=== PATIENT | female | born 1940 | race Two or more races ===

== ENCOUNTER 2021-11-10 23:08 | Emergency (ER) | payer SELFPAY ==
[~2021-11-10] VITALS: Ht 157.5 cm; Wt 77.0 kg
[2021-11-10 23:43] LABS: BASO # 0.1 x10^3/uL (0.0-0.2); BASO % 1 % (0-3); EOS # 0.1 x10^3/uL (0.0-0.7); EOS % 2 % (0-3); HEMATOCRIT 36.6 % (36.0-47.0); HEMOGLOBIN 12.2 g/dL (12.0-15.5); LYMPH # 1.5 x10^3/uL (1.0-4.8); LYMPH % 27 % (24-48); MEAN CORPUSCULAR HEMOGLOBIN 28 pg (25-35); MEAN CORPUSCULAR HGB CONC 33 g/dL (31-37); MEAN CORPUSCULAR VOLUME 83 fL (79-100); MONO # 0.3 x10^3/uL (0.0-1.1); MONO % 6 % (0-9); NEUT # 3.7 x10^3/uL (1.8-7.7); NEUT % 65 % (31-73); PLATELET COUNT 138 x10^3/uL (140-400); RED BLOOD COUNT 4.42 x10^6/uL (3.50-5.40); RED CELL DISTRIBUTION WIDTH 14.9 % (11.5-14.5); WHITE BLOOD COUNT 5.7 x10^3/uL (4.0-11.0)
[2021-11-10] MEDS ORDERED: CRESTOR40 MG PO (23:43)
[2021-11-10] MEDS ORDERED: OMEP40CA7 PO (23:43)
[2021-11-10] MEDS ORDERED: SENN1TAB99 PO (23:44)
[2021-11-10] MEDS ORDERED: fentaNYL PF VIAL 100 MCG/2 ML VIAL IV PRN (23:45)
[2021-11-10] MEDS ORDERED: IV NORMAL SALINE 1000ML BAG 1,000 ML IV ONE (23:45)
[2021-11-10] MEDS ORDERED: ONDANSETRON PF 4 MG/2 ML VIAL. IVP ONE (23:45)
[2021-11-10] MEDS ORDERED: FAMOTIDINE 20 MG/2 ML VIAL IVP ONE (23:45)
[2021-11-10] MEDS ORDERED: ASPI325T8 PO (23:45)
[2021-11-10 23:46] LABS: BILIRUBIN,URINE NEGATIVE (NEG); CLARITY,URINE CLEAR; COLOR,URINE YELLOW; NITRITE,URINE NEGATIVE (NEG); PH,URINE 6.5 (<5.0-8.0); PROTEIN,URINE NEGATIVE (NEG-TRACE); UROBILINOGEN,URINE 0.2 mg/dL (0.2 mg/dL)
[2021-11-10] MEDS ORDERED: SITA1TAB7 PO (23:46)
[2021-11-10 23:52] LABS: RBC,URINE 0 /HPF (0-2)
[2021-11-10 23:53] LABS: BACTERIA,URINE MODERATE /HPF (0-FEW)
[2021-11-10 23:56] LABS: CALCIUM 8.8 mg/dL (8.5-10.1); CREATININE 0.8 mg/dL (0.6-1.0); GFR 68.7; POTASSIUM 3.8 mmol/L (3.5-5.1)
[2021-11-11 00:02] LABS: ALBUMIN 3.2 g/dL (3.4-5.0); ALBUMIN/GLOBULIN RATIO 0.8 (1.0-1.7); TOTAL BILIRUBIN 0.5 mg/dL (0.2-1.0); TOTAL PROTEIN 7.3 g/dL (6.4-8.2)
--- NOTE | 2021-11-11 00:06 | PHYS DOC ---
Past Medical History Past Medical History: Diabetes-Type II, High Cholesterol (WILMERIsabellaSTORMY Mohan CHIEF RISK OFFICER) Smoking Status: Never Smoker Alcohol Use: None (STORMY GABRIEL Mohan CHIEF RISK OFFICER) General Adult EDM: Chief Complaint: ABDOMINAL PAIN HPI: HPI: Patient is a 81 year old female with history of diabetes type 2, high cholesterol, who presents the ED today complaining of mild intermittent epigastric abdominal pain with nausea and vomiting that began this morning. Patient denies any chest pain, shortness of breath, denies any diarrhea. Denies any hematemesis. She states she has history of gastritis and this pain feels similar. She states she has [place] the [place] since [place]. Patient is Swedish-speaking and the granddaughter is interpreting (STORMY GABRIEL CHIEF RISK OFFICER) Review of Systems: Review of Systems: Constitutional: Denies fever or chills. [] Eyes: Denies change in visual acuity. [] HENT: Denies nasal congestion or sore throat. [] Respiratory: Denies cough or shortness of breath. [] Cardiovascular: Denies chest pain or edema. [] GI: Reports epigastric abdominal pain with nausea and vomiting, bloody stools or diarrhea. [] : Denies dysuria. [] Musculoskeletal: Denies back pain or joint pain. [] Integument: Denies rash. [] Neurologic: Denies headache, focal weakness or sensory changes. [] Endocrine: Denies polyuria or polydipsia. [] Lymphatic: Denies swollen glands. [] Psychiatric: Denies depression or anxiety. [] (NERYSTORMY Preston CHIEF RISK OFFICER) Heart Score: C/O Chest Pain: N/A Risk Factors: Risk Factors: DM, Current or recent (<one month) smoker, HTN, HLP, family history of CAD, obesity. Risk Scores: Score 0 - 3: 2.5% MACE over next 6 weeks - Discharge Home Score 4 - 6: 20.3% MACE over next 6 weeks - Admit for Clinical Observation Score 7 - 10: 72.7% MACE over next 6 weeks - Early Invasive Strategies (STORMY GABRIEL CHIEF RISK OFFICER) Current Medications: Current Medications Medications (Trade) Dose Ordered Sig/Siddhartha Start Time Stop Time Status Last Admin Dose Admin Famotidine (Pepcid Vial) 20 mg 1X ONCE 11/10/21 23:45 11/10/21 23:46 DC Fentanyl Citrate (Fentanyl 2ml Vial) 50 mcg PRN Q15MIN PRN 11/10/21 23:45 11/11/21 23:44 Ondansetron HCl (Zofran) 4 mg 1X ONCE 11/10/21 23:45 11/10/21 23:46 DC Sodium Chloride 1,000 ml @ 1,000 mls/hr 1X ONCE 11/10/21 23:45 11/11/21 00:44 (STORMY GABRIEL Mohan CHIEF RISK OFFICER) Allergies: Allergies: Allergies Coded Allergies Type Severity Reaction Last Updated Verified No Known Drug Allergies 11/10/21 No (STORMY GABRIEL Mohan CHIEF RISK OFFICER) Physical Exam: PE: Constitutional: Well developed, well nourished, no acute distress, non-toxic appearance. [] HENT: Normocephalic, atraumatic, bilateral external ears normal, oropharynx moist, no oral exudates, nose normal. [] Eyes: PERRLA, EOMI, conjunctiva normal, no discharge. [] Neck: Normal range of motion, no tenderness, supple, no stridor. [] Cardiovascular:Heart rate regular rhythm, no murmur [] Lungs & Thorax: Bilateral breath sounds clear to auscultation [] Abdomen: Bowel sounds normal, soft, mild tenderness to the epigastric region, no right upper quadrant or right lower quadrant tenderness, no masses, no pulsatile masses. [] Skin: Warm, dry, no erythema, no rash. [] Back: No tenderness, no CVA tenderness. [] Extremities: No tenderness, no cyanosis, no clubbing, ROM intact, no edema. [] Neurologic: Alert and oriented X 3, normal motor function, normal sensory function, no focal deficits noted. [] Psychologic: Affect normal, judgement normal, mood normal. [] (TSORMY GABRIEL M CHIEF RISK OFFICER) Current Patient Data: Labs: Laboratory Tests Test 11/10/21 23:20 11/10/21 23:30 Urine Collection Type Void Urine Color Yellow Urine Clarity Clear Urine pH 6.5 (<5.0-8.0) Urine Specific [place] 1.020 (1.000-1.030) Urine Protein Negative mg/dL (NEG-TRACE) Urine Glucose (UA) Negative mg/dL (NEG) Urine Ketones (Stick) Negative mg/dL (NEG) Urine Blood Negative (NEG) Urine Nitrite Negative (NEG) Urine Bilirubin Negative (NEG) Urine Urobilinogen Dipstick 0.2 mg/dL (0.2 mg/dL) Urine Leukocyte Esterase Moderate (NEG) Urine RBC 0 /HPF (0-2) Urine WBC 11-20 /HPF (0-4) Urine Squamous Epithelial Cells Mod /LPF Urine Bacteria Moderate /HPF (0-FEW) Urine Mucus Slight /LPF White Blood Count 5.7 x10^3/uL (4.0-11.0) Red Blood Count 4.42 x10^6/uL (3.50-5.40) Hemoglobin 12.2 g/dL (12.0-15.5) Hematocrit 36.6 % (36.0-47.0) Mean Corpuscular Volume 83 fL (79-100) Mean Corpuscular Hemoglobin 28 pg (25-35) Mean Corpuscular Hemoglobin Concent 33 g/dL (31-37) Red Cell Distribution Width 14.9 % (11.5-14.5) H Platelet Count 138 x10^3/uL (140-400) L Neutrophils (%) (Auto) 65 % (31-73) Lymphocytes (%) (Auto) 27 % (24-48) Monocytes (%) (Auto) 6 % (0-9) Eosinophils (%) (Auto) 2 % (0-3) Basophils (%) (Auto) 1 % (0-3) Neutrophils # (Auto) 3.7 x10^3/uL (1.8-7.7) Lymphocytes # (Auto) 1.5 x10^3/uL (1.0-4.8) Monocytes # (Auto) 0.3 x10^3/uL (0.0-1.1) Eosinophils # (Auto) 0.1 x10^3/uL (0.0-0.7) Basophils # (Auto) 0.1 x10^3/uL (0.0-0.2) Sodium Level 140 mmol/L (136-145) Potassium Level 3.8 mmol/L (3.5-5.1) Chloride Level 104 mmol/L (98-107) Carbon Dioxide Level 27 mmol/L (21-32) Anion Gap 9 (6-14) Blood Urea Nitrogen 18 mg/dL (7-20) Creatinine 0.8 mg/dL (0.6-1.0) Estimated GFR (Cockcroft-Gault) 68.7 BUN/Creatinine Ratio 23 (6-20) H Glucose Level 157 mg/dL (70-99) H Calcium Level 8.8 mg/dL (8.5-10.1) Total Bilirubin Pending Aspartate Amino Transferase (AST) Pending Alanine Aminotransferase (ALT) Pending Alkaline Phosphatase Pending Total Protein Pending Albumin Pending Albumin/Globulin Ratio Pending Laboratory Tests 11/10/21 23:30 Laboratory Tests 11/10/21 23:30 (STORMY GABRIEL Mohan CHIEF RISK OFFICER) EKG: EKG: [] (STORMY GABRIEL Mohan CHIEF RISK OFFICER) EKG: Patient 70 bpm, no axis deviation, normal intervals, APCs present, no T wave inversion, no ST ovation ST depression, (KATELYNN LUCIANO DO) Radiology/Procedures: Radiology/Procedures: [] (STORMY GABRIEL Mohan CHIEF RISK OFFICER) Radiology/Procedures: IMAGING REPORT Signed PATIENT: JUAREZ GONZALES ACCOUNT: [id number] : 1940 LOCATION: ER AGE: 81 SEX: F EXAM STATUS: REG ER ORD. PHYSICIAN: KATELYNN LUCIANO DO REASON: abd pain OMNI 300 75 ML IV PROCEDURE: CT CHEST ABD PELVIS W/CONTRAST PQRS Compliance Statement: One or more of the following individualized dose reduction techniques were utilized for this examination: 1. Automated exposure control 2. Adjustment of the mA and/or kV according to patient size 3. Use of iterative reconstruction technique CT CHEST+ABD+PELVIS W 11/10/2021 12:40 AM INDICATION: Abdominal pain COMPARISON: None available TECHNIQUE: Multiple axial CT images of the chest, abdomen and pelvis were obtained after the intravenous administration of 75 mL Omnipaque 300. Coronal and sagittal reformats are provided. FINDINGS: Thyroid gland is normal in appearance. There are no pathologically enlarged axillary, mediastinal or hilar lymph nodes. Heart size is within normal limits. Thoracic aorta is normal in course and caliber. There is no significant pericardial effusion. Thoracic esophagus is normal in appearance. Anterior chest wall appears intact. No suspicious solid noncalcified pulmonary nodule. There are no pleural effusions, pulmonary vascular congestion or pneumothorax. Lungs are clear without focal airspace consolidation. Central airways are clear. Moderate-sized hiatal hernia. Liver, spleen, adrenal glands and pancreas are no rmal in appearance. Cholelithiasis. Abdominal aorta is normal in course and caliber. There is no free fluid or free intraperitoneal air. No pathologically enlarged lymph nodes in abdomen or pelvis. The kidneys enhance symmetrically. There is no suspicious renal mass. There is no hydronephrosis. There are no suspected calculi within the kidneys, ureters or urinary bladder. Simple renal cyst identified in the inferior pole of left kidney measuring 8 mm. Urinary bladder is within normal limits given degree of distention. Mild diverticulosis. Minimal adjacent inflammation identified at the junction of the left colon and sigmoid colon as may be seen with mild diverticulitis. No peridiverticular a bscess. Appendix is normal in appearance. No suspicious osseous abnormality is identified. There is inferior endplate compression deformity of L1 secondary to Schmorl's node with 50 percent height loss, likely chronic. Retropulsion of the inferior endplate resulting in mild spinal canal stenosis. IMPRESSION: 1. Mild diverticulitis of the junction of the left colon and sigmoid colon. No peridiverticular abscess or free intraperitoneal air. 2. No acute abnormality involving the chest. 3. Moderate sized hiatal hernia. 4. Inferior plate compression deformity at L1 appears chronic with 50 percent height loss and mild retropulsion resulting in mild spinal canal stenosis. 5. Cholelithiasis Electronically signed by: Hugo Licona MD (11/11/2021 1:43 AM) [facility] DICTATED and SIGNED BY: HUGO LICONA MD DATE: 11/11/21 [id number] (KATELYNN LUCIANO DO) Course & Med Decision Making: Course & Med Decision Making Pertinent Labs and Imaging studies reviewed. (See chart for details) This 81-year-old female patient with history of gastritis presented today complaining of nausea, vomiting and epigastric abdominal pain since this morning. [address] Luciano (STORMY GABRIEL APRN) Course & Med Decision Making I received signout at shift change. Patient presents to the ED with complaints of epigastric abdominal pain with nausea and vomiting. Patient with no active n ausea or vomiting emergency department. CT imaging concerning for mild diverticulitis and urinalysis consistent with urinary tract infection. Will prescribe Cipro, Flagyl and Zofran ODT. Reevaluation, patient calm, resting with significant improvement in pain. Tolerates oral intake. Abdomen is soft with no rigidity or guarding. Daughter is at bedside to assist with translating - patient is Swedish-speaking, dewer services were offered. Will discharge home with strict ED return precautions were given for intractable nausea or vomiting, severe abdominal pain, fever or confusion. Encouraged urgent outpatient follow-up with PMD for repeat evaluation, consider GI evaluation for diverticulitis. Life-threatening processes were considered but are low suspicion at this time, given history, physical exam and ED workup. Pt was educated on all prescription medications and adverse effects. All patient's questions were answered and pt was stable at time of discharge. Life/limb-threatening differential includes but is not limited to, aortic dissection, aortic aneurysm, acute coronary syndrome, surgical abdomen (appendicitis, cholecystitis, ischemic bowel, strangulated hernia, etc), bowel o bstruction or volvulus, bladder outlet obstruction, gastrointestinal bleeding, inflammatory bowel disease, peptic ulcer disease, ACS/CAD, sepsis, diverticular disease, ureterolithiasis, nephrolithiasis, ovarian or testicular torsion, ectopic , vaginal hemorrhage, or genitourinary infection. I have spoken with the patient and/or caregivers. I explained the patient's condition, diagnoses and treatment plan based on the information available to me at this time. I have answered the patient and/or caregiver's questions and addressed any concerns. The patient and/or caregivers have a good understanding of patient's diagnosis, condition and treatment plan as can be expected at this point. Vital signs have been stable. Patient's condition is stable and appropriate for discharge from the emergency department. Patient will pursue further outpatient evaluation with primary care physician or other designated or consulting physician as outlined in the discharge instructions. The patient and/or caregivers are agreeable to this plan of care and follow-up instructions have been explained in detail. The patient and/or caregivers have received these instructions in written form and have expressed an understanding of the discharge instructions. The patient and/or caregivers are aware that any significant change of condition or worsening of symptoms should prompt immediate return to this or the closest emergency department or call to 911. (KATELYNN WILSON DO) Nitish Disclaimer: Nitish Disclaimer: This electronic medical record was generated, in whole or in part, using a voice recognition dictation system. (STORMY GABRIEL CHIEF RISK OFFICER) Departure Departure Impression: Primary Impression: Diverticulitis Additional Impression: UTI (urinary tract infection) Disposition: 01 HOME / SELF CARE / HOMELESS Condition: STABLE Referrals: POP BRINK III DO Seguimiento con montague mdico de atencin primaria para atencin de rutina O SEGUIMIENTO CON MEDICINA FAMILIAR: [address] [place] [address] Telf[place]: Patient Instructions: Abdominal Pain (Nonspecific), Diverticulitis, Urinary Tract Infection Additional Instructions: SEGUIMIENTO CON GASTROENTEROLOGA: PARA EL MANEJO DEFINITIVO del dolor abdominal, considere evaluacin para endoscopia y colonoscopia Consultores gastrointestinales de [facility] Austin Francoise [address] [place] [address] [place]: INSTRUCCIONES GENERALES DE SOLEDAD DEL DEPARTAMENTO DE EMERGENCIA Levi por venir al Departamento de Emergencias (ED) de [facility] y confiando en nosotros con montague cuidado. Confiamos en que tuviste sharla experiencia positiva en nuestra Emergencia Departamento. Si desea hablar con la gerencia del departamento, puede llamar al Director al [phone]. YVONNE INSTRUCCIONES DE SEGUIMIENTO SON LAS SIGUIENTES: 1. Tiene un mdico privado? Si no tiene un mdico privado, por favor pida vitor lista de recursos de mdicos o clnicas que pueden ayudarlo con la atencin de seguimiento. 2. El Mdico de Urgencias araujo interpretado yvonne radiografas. El especialista en arturo X tambin revisarlos. Si hay un cambio en los hallazgos, se le notificar en 48 horas cuando al todo posible. 3. Se araujo realizado sharla prueba de laboratorio o cultivo, se revisarn yvonne resultados y se le notificado si necesita un cambio en el tratamiento. INSTRUCCIONES E INFORMACIN ADICIONALES: 1. Montague atencin hoy araujo sido supervisada por un mdico especialmente capacitado en emergencias cuidado. Muchos problemas requieren ms de sharla evaluacin para un diagnstico completo y tratamiento. Le recomendamos que programe montague edi de seguimiento segn lo recomendado para garantizar el tratamiento completo de montague enfermedad o lesin. Si no puede obtener un seguimiento atencin y contina teniendo un problema, o si montague condicin empeora, le chantal mendamos que volver al servicio de urgencias. 2. No podemos determinar montague condicin de forma bustillo por telfono ni podemos oscar buenos consejos mdicos por telfono. Por estas razones de seguridad, si llama para recibir atencin mdica consejo, le pediremos que venga al servicio de urgencias para sharla evaluacin adicional. 3. Si tiene alguna pregunta con respecto a estas instrucciones de soledad, llame al ED al [phone]. INFORMACIN DE SEGURIDAD: En inters de la seguridad, el bienestar y la prevencin de lesiones; te animamos a que lleves tu cinturn de seguridad, si fuma; fumando bastante, y alentamos a la elizabeth a usar un danitza protector para andar en bicicleta y otros eventos deportivos que presentan un mayor riesgo de lesiones en la hilda. SI YVONNE SNTOMAS EMPEORAN O SE DESARROLLAN NUEVOS SNTOMAS, O SI TIENE PREOCUPACIONES SOBRE MONTAG[place] CONDICIN; O SI MONT[place] CONDICIN EMPEORA MIENTRAS ESPERA MONTAG[place] EDI DE SEGUIMIENTO; CUALQUIERA COMUNQUESE CON [place] MDICO DE ATENCIN PRIMARIA, EL MDICO CUYO NOMBRE Y NMERO LE DIERON, O REGRESE AL ED INMEDIATAMENTE. Scripts Ondansetron (ONDANSETRON ODT) 4 Mg Tab.rapdis 1 TAB PO PRN Q6-8HRS, #20 TAB Prov: KATELYNN LUCIANO DO 11/11/21 Ciprofloxacin Hcl (CIPRO) 250 Mg Tablet 2 TAB PO BID for infection for 5 Days, #20 TAB Prov: KATELYNN LUCIANO DO 11/11/21 Metronidazole (METRONIDAZOLE) 250 Mg Tablet 2 TAB PO TID for 5 Days, #30 TAB alcohol with this medication causes nausea and vomiting Prov: KATELYNN LUCIANO DO 11/11/21 STORMY GABRIEL APRN Nov 11, 2021 00:06 KATELYNN LUCIANO DO Nov 11, 2021 02:24
[2021-11-11] MEDS ORDERED: IOHEXOL 300 MG/ML 100ML VIAL. IV ONE (00:15)
[2021-11-11] MEDS ORDERED: CONTRAST GIVEN. MC PRN (00:15)
--- NOTE | 2021-11-11 00:26 | EKG ---
[facility] [address] [place] [address] Test Date: 2021-11-10 Test Time: 23:57:54 Pat Name: JUAREZ GONZALES Department: Room: Gender: F Applications Trainer: : 1940 Requested By: STORMY GABRIEL Order Number: [id number] Reading MD: Measurements Intervals [place] Rate: 78 P: 37 DE: 174 QRS: 18 QRSD: 70 T: 18 QT: 396 QTc: 455 Interpretive Statements SINUS RHYTHM ATRIAL PREMATURE COMPLEX(ES) ST & T ABNORMALITY, CONSIDER RECENT INFERIOR MYOCARDIAL OR PERICARDIAL DAMAGE ABNORMAL ECG RI6.02 No previous ECG available for comparison
--- NOTE | 2021-11-11 01:45 | RAD ---
PQRS Compliance Statement: One or more of the following individualized dose reduction techniques were utilized for this examinat ion: 1. Automated exposure control 2. Adjustment of the mA and/or kV according to patient size 3. Use of iterative reconstruction technique CT CHEST+ABD+PELVIS W 11/10/2021 12:40 AM INDICATION: Abdominal pain COMPARISON: None available TECHNIQUE: Multiple axial CT images of the chest, abdomen and pelvis were obtained after the intraven ous administration of 75 mL Omnipaque 300. Coronal and sagittal reformats are provided. FINDINGS: Thyroid gland is normal in appearance. There are no pathologically enlarged axillary, mediastinal or hilar lymph nodes. Heart size is within normal limits. Thoracic aorta is normal in course and caliber. There is no significant pericardial e ffusion. Thoracic esophagus is normal in appearance. Anterior chest wall appears intact. No suspicious solid noncalcified pulmonary nodule. There are no pleural effusions, pulmonary vascular congestion or pneumothorax. Lungs are clear without focal airspace consolidation. Central airways ar e clear. Moderate-sized hiatal hernia. Liver, spleen, adrenal glands and pancreas are normal in appearance. Ch olelithiasis. Abdominal aorta is normal in course and caliber. There is no free fluid or free intrape ritoneal air. No pathologically enlarged lymph nodes in abdomen or pelvis. The kidneys enhance symmet rically. There is no suspicious renal mass. There is no hydronephrosis. There are no suspected calcul i within the kidneys, ureters or urinary bladder. Simple renal cyst identified in the inferior pole o f left kidney measuring 8 mm. Urinary bladder is within normal limits given degree of distention. Mil d diverticulosis. Minimal adjacent inflammation identified at the junction of the left colon and sigm oid colon as may be seen with mild diverticulitis. No peridiverticular abscess. Appendix is normal in appearance. No suspicious osseous abnormality is identified. There is inferior endplate compression deformity of L1 secondary to Schmorl's node with 50 percent height loss, likely chronic. Retropulsion of the inferior endplate resulting in mild spinal canal stenosis. IMPRESSION: 1. Mild diverticulitis of the junction of the left colon and sigmoid colon. No peridiverticular absce ss or free intraperitoneal air. 2. No acute abnormality involving the chest. 3. Moderate sized hiatal hernia. 4. Inferior plate compression deformity at L1 appears chronic with 50 percent height loss and mild re tropulsion resulting in mild spinal canal stenosis. 5. Cholelithiasis Electronically signed by: Abby Marsh MD (11/11/2021 1:43 AM) [facility]
[2021-11-11] MEDS ORDERED: FAMOTIDINE 20 MG/2 ML VIAL IVP ONE (03:45)
[2021-11-11 03:58] VITALS: BP 142/65
[2021-11-11] MEDS ORDERED: CIPR250T30 PO (04:00)
[2021-11-11] MEDS ORDERED: METR-111 PO (04:00)
[2021-11-11] MEDS ORDERED: ONDA4TAB12 PO (04:02)
[2021-11-11] MEDS ORDERED: IOHEXOL 300 MG/ML 100ML VIAL. ONE (06:24)
== END 2021-11-11 04:40 | disposition home or self-care (01) ==
LOC: ER 23:08
DX: K57.92 Diverticulitis of intestine, part unspecified, without perforation or abscess without bleeding (principal); N39.0 Urinary tract infection, site not specified; R11.2 Nausea with vomiting, unspecified; E11.9 Type 2 diabetes mellitus without complications; E78.00 Pure hypercholesterolemia, unspecified
CPT/HCPCS: 36415; 71260; 74177; 80053; 81001; 84484; 85025; 87086; 93005; 96361; 96374; 96375; 99285; J2405; J3010; J3490; J7030; Q9967; 87077; 87186